=== PATIENT | female | born 1990 | race American Indian/Alaskan Native ===

== ENCOUNTER 2018-01-23 22:18 | Emergency (ER) | payer MEDICAID ==
[2018-01-23 23:16] VITALS: BMI 39.0
[2018-01-23] MEDS ORDERED: Lactated Ringer's 1,000 ML IV ONE (23:18)
--- NOTE | 2018-01-23 23:26 | OBHP ---
Datetime: 01/23/2018 23:07 IP Adm Impression: , intrauterine IP Admit Plan: Observation/Evaluation Admit Comment, IP Provider: 27 yo edc 03/10 @33.3wks by us presents w/ c/o of noticing vag sp otting when she voided this evening. She c/o intermittent cramps and lower back pain which she states she became aware of after she noticed spotting. Denies coitus since time of conception. Denies srom, decreased fm or labor pain. states she drinks juice and pepsi. states current preg unremarkable nkda medic: pnv shx: denies etoh, drugs or tobacco pmhx: denies pshx: denies obhx: x2 at term i: 33.3 wks vaginal spotting p: ua pt declined iv hydration and states she will drink water. Pelvic Type - PN: Adequate Extremities - PN: Normal Abdomen - PN: Normal Lungs - PN: Normal Heart - PN: Normal Neurologic - PN: Normal HEENT - PN: Normal General - PN: Normal Presentation-Admit: Vertex FHR - Baseline A Provider: 130 Membranes, Provider: Intact EGA AdmitDate IP: 33.3 Vital Signs Provider: Within Normal Limits IP Chief Complaint: Vaginal bleeding NICHD Variability Prov Fetus A: Moderate 6-25bpm NICHD Accel Fetus A IP Provider: [id number] FHR Category Provider Fetus A: Category I NICHD Decel Fetus A IP Provider: None Dilatation, Provider: 0 Effacement, Provider: 0 Station, Provider: -3 Genitourinary Exam: Normal
== END 2018-01-23 23:43 | disposition left against medical advice (07) ==
LOC: C.EROB 22:18
DX: O26.853 Spotting complicating pregnancy, third trimester (principal); Z3A.33 33 weeks gestation of pregnancy

== ENCOUNTER 2018-11-03 17:22 | Emergency (ER) | payer MEDICAID ==
[2018-11-03 17:23] VITALS: BMI 39.0
[2018-11-03 17:57] VITALS: BP 111/70; PULSE 81; RESP 18; TEMP 98.4; O2SAT 99
--- NOTE | 2018-11-03 18:32 | C.PDOC ---
History Of Present Illness 28 year old female presents to the emergency department with complaints of vaginal spotting and lower abdominal pain. Patient states that her menstrual cycle ended 2 weeks ago and that she is concerned for . Time Seen by Provider: 11/03/18 17:46 Chief Complaint (Nursing): Female Genitourinary History Per: Patient History/Exam Limitations: no limitations Onset/Duration Of Symptoms: Days Current Symptoms Are (Timing): Still Present Quality Of Discomfort: "Pain" Associated Symptoms: Other (vaginal spotting, abdominal pain) Last Menstral Period: 2 weeks ago Past Medical History Reviewed: Historical Data, Nursing Documentation, Vital Signs Vital Signs: Last Vital Signs Temp 98.4 F 11/03/18 17:54 Pulse 81 11/03/18 17:54 Resp 18 11/03/18 17:54 BP 111/70 11/03/18 17:54 Pulse Ox 99 11/03/18 17:54 - Medical History PMH: Asthma (no meds), Bronchitis Denies: Chronic Kidney Disease Surgical History: No Surg Hx Family History: States: No Known Family Hx - Social History Hx Tobacco Use: Yes (light smoker) Hx Alcohol Use: No Hx Substance Use: No - Immunization History Hx Tetanus Toxoid Vaccination: No Hx Influenza Vaccination: No Hx Pneumococcal Vaccination: No Review Of Systems Except As Marked, All Systems Reviewed And Found Negative. Constitutional: Negative for: Fever, Chills Gastrointestinal: Positive for: Abdominal Pain. Negative for: Nausea, Vomiting Genitourinary: Positive for: Vaginal Bleeding (spotting) Physical Exam - Physical Exam Appears: Non-toxic, No Acute Distress Skin: Normal Color, Warm, Dry Head: Atraumatic, Normacephalic Eye(s): bilateral: Normal Inspection, PERRL, EOMI Nose: Normal Oral Mucosa: Moist Neck: Normal, Supple Chest: Symmetrical, No Tenderness Cardiovascular: Rhythm Regular, No Murmur Respiratory: Normal Breath Sounds, No Rales, No Rhonchi, No Wheezing Gastrointestinal/Abdominal: Soft, No Tenderness, No Guarding, No Rebound, Other (obese) Extremity: Normal ROM Neurological/Psych: Oriented x3, Normal Speech, Normal Cognition ED Course And Treatment O2 Sat by Pulse Oximetry: 99 (RA) Pulse Ox Interpretation: Normal Medical Decision Making Medical Decision Making: Plan: Beta-HCG Quantitative Patient's POC is negative, requesting blood test. Disposition - Disposition Disposition Time: 18:44 Condition: STABLE Forms: [facility] ([place]ian) - Clinical Impression Clinical Impression: Vaginal spotting - Scribe Statement The provider has reviewed the documentation as recorded by the Scribe (Kaden Cardenas) Provider Attestation: All medical record entries made by the Scribe were at my direction and personally dictated by me. I have reviewed the chart and agree that the record accurately reflects my personal performance of the history, physical exam, medical decision making, and the department course for this patient. I have also personally directed, reviewed, and agree with the discharge instructions and disposition. Physician Patient Turnover Patient Signed Over To: Lina Welsh Handoff Comments: pending Beta and discharge
== END 2018-11-03 19:08 | disposition home or self-care (01) ==
LOC: C.ER 17:22
DX: N93.9 Abnormal uterine and vaginal bleeding, unspecified (principal)